=== PATIENT | female | born 1990 | race Caucasian/White ===

== ENCOUNTER 2018-05-23 19:02 | Outpatient (REF) | payer BC, SELFPAY ==
--- NOTE | 2018-05-23 15:40 | PAPFT_PTH ---
PATIENT: Lissy Alfonso LOC: [facility] U#:[id number] AGE/SX: 27/F ROOM: RE05/23/[address]: Corry Hathaway : 1990 BED: DIS: 05/23/2018 SPEC #: [id number] RECD: 05/27/18 12:54 STATUS: TITUS RECharles #: [id number] FANG: 05/23/18 15:[address]: Corry Hathaway DEPT: [facility] Cytology RECD BY: Meeta Moe Tissues: 1 - CX/ENDOCX FOR PAP SMEARS Procedures: PAP THIN PREP/[facility] Screening Comments: [id number]
[2018-05-28 15:01] LABS: Chlamydia Result Negative; GC Result Negative; Specimen Description CERVIX
== END 2018-05-23 19:03 ==
LOC: NCHCN 19:02
PROVIDERS: PCP Nurse Practitioner Family; Visit Provider Nurse Practitioner Family
DX: Z11.3 Encounter for screening for infections with a predominantly sexual mode of transmission (principal); Z12.4 Encounter for screening for malignant neoplasm of cervix; Z00.00 Encounter for general adult medical examination without abnormal findings
CPT/HCPCS: 87491; 87591; 88142

== ENCOUNTER 2019-12-02 19:58 | Emergency (ER) | payer OTHER, SELFPAY ==
[2019-12-02 20:05] VITALS: BP 141/86; PULSE 135; RESP 18; TEMP 36.5; O2SAT 99
[2019-12-02] MEDS: Oseltamivir 75 MG CAP PO (20:33)
--- NOTE | 2019-12-02 20:36 | ED.GENADUL_ITS ---
Discharge Plan Disposition Patient Disposition: HOME Condition: Stable Discharge Details Chief Complaint: Abd Prob Clinical Impression: Influenza Primary Care Provider: Corry Hathaway ED Provider: Rogelio Duran Home Meds and New Rx's Prescriptions: New oseltamivir 75 mg capsule 75 mg PO Q12H 5 Days Qty: 10 RF: 0 Discharge Instructions Instructions: Influenza (ED) Additional Instructions: you can take 1000mg tylenol and 600mg ibuprofen every 6 hours as needed drink plenty of fluids to stay hydrated if you have severe worsening pain, difficulty breathing, persistent vomit or feel more ill return to the emergency department Medical Decision Making 29 yo female with no chronic medical problems, smoker, denies drug use other than marijuana comes in with complaints of body aches, chills, dry cough. Denies any overseas travel or known sick contacts. She denies abdominal pain, n/v, dysuria, rashes. She has no neck pain or stiffness, has mild frontal headache. She did have viral meningitis per patient 4 years ago in [place]. She has no meningismus, HR 110 on my exam, moist membranes, no murmurs, clear rhinorrhea, soft nontender abdomen, CN II-XII intact, no focal motor or sensation deficits on exam. Her exam is most consistent with influenza and after discussion with her will defer testing and start tamiflu. 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 She has clear lungs and only a dry cough so doubt pna. 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 Date/Time Provider Initiated Documentation: 12/02/19 20:15 . Limitations to Documentation: no limitations . Information obtained by: patient . History of Present Illness 29 year old F presents to the emergency department with the chief complaint of body aches, described as moderate, Patient started experiencing this day(s) (1) and it has been constant. No relieving factors improve symptom(s), No exacerbating factors reported . Patient notes cough. Patient did receive the following treatments prior to arrival, none Related Data Home Medications Medication Instructions Recorded Confirmed oseltamivir 75 mg PO Q12H 5 Days #10 cap 12/02/19 Previous Rx's Medication Instructions Recorded oseltamivir 75 mg PO Q12H 5 Days #10 cap 12/02/19 Allergies Allergy/AdvReac Type Severity Reaction Status Date / Time No Known Allergies Allergy Unverified 01/05/18 17:40 General Stated Complaint: Abd Prob BEAU: 3 Review of Systems All systems reviewed & are unremarkable except as noted in HPI and below Constitutional Constitutional: Denies fever(s) Cardiovascular Cardiovascular: Denies chest pain and Denies dyspnea Respiratory Respiratory: Denies dyspnea Gastrointestinal Gastrointestinal: Denies abdominal pain, Denies nausea and Denies vomiting Genitourinary Genitourinary: Denies dysuria Integumentary/Breasts Skin/Breast: Denies rash PFSH Social History Smoking/Tobacco Use Status: Current every day Tobacco Type: cigarettes Drug use: Occasionally Substance use type: marijuana Do you feel safe at home: Yes Do you feel safe in your relationship?: Yes Exam Const General: no acute distress Orientation: alert HENMT Head: normal to inspection Ears: external ears normal General nose exam: external nose normal Mouth: moist mucous membranes Eyes General: appearance normal, both eyes and all related structures Neck Neck: normal visual inspection Resp Effort & Inspection: normal respiratory effort and able to speak in complete sentences Cardio Rate: regular rate GI Palpation: soft and nontender Skin General skin exam: no rashes or lesions noted Neuro General: alert and oriented x3 Extrem General: normal to inspection Psych Mental Status: mental status grossly normal Course Vital Signs Vital signs: Vital Signs Temperature 36.5 C 12/02/19 20:05 Pulse 135 H 12/02/19 20:05 Respiratory Rate 18 12/02/19 20:05 Blood Pressure 141/86 H 12/02/19 20:05 Pulse Oximetry 99 12/02/19 20:05 Temperature 36.5 C 12/02/19 20:05 Temperature Source Temporal Artery Scan 12/02/19 20:05 Pulse 135 H 12/02/19 20:05 Respiratory Rate 18 12/02/19 20:05 Blood Pressure 141/86 H 12/02/19 20:05 Pulse Oximetry 99 12/02/19 20:05 Oxygen Delivery Method Room Air 12/02/19 20:05 Oxygen Flow Rate 0 12/02/19 20:05 Pain Level 7 12/02/19 20:05
== END 2019-12-02 20:45 | disposition home or self-care (01) ==
PROVIDERS: Emergency Provider Emergency Medicine; PCP Nurse Practitioner Family
DX: J11.1 Influenza due to unidentified influenza virus with other respiratory manifestations (principal); F17.210 Nicotine dependence, cigarettes, uncomplicated
CPT/HCPCS: 99283

== ENCOUNTER 2020-02-01 09:55 | Outpatient (REF) | payer OTHER, SELFPAY ==
[2020-02-01 16:11] LABS: HCT 43.3 % (36.0-46.0); HGB 14.9 g/dL (12.0-15.5); Mean Corp. HGB Concentration 34.4 g/dL (32.0-36.0); Mean Corpuscular Hemoglobin 31.2 pg (27.0-33.0); Mean Corpuscular Volume 90.8 fL (80-95); Mean Platelet Volume 12.2 fL (8.0-11.0); Platelet Count 172 x1000/uL (130-400); RBC 4.77 m/cumm (4.00-5.20); RBC Distribution Width 12.8 % (11.7-14.6); White Blood Cell Count 7.39 k/cumm (4.4-10.8)
[2020-02-01 16:20] LABS: ALT 25 U/L (14-59); AST 17 U/L (15-37); Albumin 4.7 g/dL (3.4-5.0); Alkaline Phosphatase 51 U/L (46-116); Anion Gap 10.7 mmol/L (3-11); BUN 7 mg/dL (7-18); Bilirubin, Total 0.4 mg/dL (0.2-1.0); CO2 25.3 mmol/L (21.0-32.0); CREATININE 0.88 mg/dL (0.55-1.02); Calcium 9.2 mg/dL (8.5-10.1); Chloride 100 mmol/L (98-107); Glucose 102 mg/dL (74-106); Potassium 4.2 mmol/L (3.5-5.1); Sodium 136 mmol/L (136-145); Total Protein 7.7 g/dL (6.4-8.2)
[2020-02-02 12:49] LABS: Hepatitis C Ab w Rflx HCV PCR Negative (Negative)
[2020-02-02 14:23] LABS: HIV-1/2 Ag & Ab Screen Negative (Negative)
== END 2020-02-01 10:15 ==
LOC: NCHCN 09:55
PROVIDERS: PCP Nurse Practitioner Family; Visit Provider Nurse Practitioner Family
DX: Z00.00 Encounter for general adult medical examination without abnormal findings (principal); F10.10 Alcohol abuse, uncomplicated; Z11.4 Encounter for screening for human immunodeficiency virus [HIV]; Z11.59 Encounter for screening for other viral diseases
CPT/HCPCS: 80053; 85027; 86803; 87389

== ENCOUNTER 2022-04-04 16:30 | Outpatient (REF) | payer OTHER, SELFPAY ==
[2022-04-04 15:11] LABS: Abs Immature Grans 0.01 10^3/uL (0.0-0.06); Absolute Basophil Count 0.02 10^3/uL (0.0-0.2); Absolute Eosinophil Count 0.12 10^3/uL (0.0-0.7); Absolute Lymphocyte Count 1.33 10^3/uL (1.2-3.4); Absolute Monocyte Count 0.29 10^3/uL (0.1-0.8); Absolute Neutrophil Count 2.99 10^3/uL (1.2-6.7); Basophils % 0.4; Eosinophils % 2.5; HCT 39.8 % (36.0-46.0); HGB 13.7 g/dL (11.2-15.7); Immature Grans % 0.2; Lymphocytes % 27.9; MCH 30.5 pg (27.0-33.0); MCHC 34.4 % (32.0-36.0); MCV 89 fL (80-95); MPV 11.8 fL (8.0-11.0); Monocytes % 6.1; Neutrophils % 62.9; Platelet Count 171 10^3/uL (130-400); RBC 4.49 10^6/uL (3.93-5.22); RDW-SD 42.4 fL; WBC 4.76 10^3/uL (4.4-10.8)
[2022-04-04 16:09] LABS: ALT 24 U/L (14-59); AST 19 U/L (15-37); Albumin 4.5 g/dL (3.4-5.0); Alkaline Phosphatase 53 U/L (46-116); BUN 13 mg/dL (7-18); Bilirubin, Total 0.6 mg/dL (0.2-1.0); CREATININE 0.8 mg/dL (0.55-1.02); Calcium 9.1 mg/dL (8.5-10.1); Chloride 104 mmol/L (98-107); Glucose 89 mg/dL (74-106); Potassium 3.8 mmol/L (3.5-5.1); Sodium 142 mmol/L (136-145); Total Protein 7.4 g/dL (6.4-8.2); Vitamin B12 471 pg/mL (193-986)
[2022-04-05 10:45] LABS: Lyme Ab w Rflx to Lyme Confirm Negative (Negative)
== END 2022-04-04 16:31 | disposition home or self-care (01) ==
LOC: NCHCN 16:30
PROVIDERS: PCP Nurse Practitioner Family; Visit Provider Nurse Practitioner Family
DX: R53.83 Other fatigue (principal); F41.8 Other specified anxiety disorders; F17.200 Nicotine dependence, unspecified, uncomplicated; F10.10 Alcohol abuse, uncomplicated; W57.XXXA Bitten or stung by nonvenomous insect and other nonvenomous arthropods, initial encounter; T14.8XXA Other injury of unspecified body region, initial encounter
CPT/HCPCS: 80053; 82607; 85025; 86618